=== PATIENT | female | born 1965 | race Caucasian/White ===

== ENCOUNTER 2017-06-28 14:14 | Emergency (ER) | payer OTHER ==
[~2017-06-28] VITALS: Ht 167.6 cm; Wt 65.3 kg
[~2017-06-28 14:14] MED LIST: HYDR-3307 PO
[2017-06-28 14:21] VITALS: BP 135/80
[2017-06-28] MEDS ORDERED: LIDOCAINE 1%, 20ML ONE ×2 (14:26→14:29)
[2017-06-28] MEDS ORDERED: LIDOCAINE 1%, 20ML INFIL ONE (14:30)
== END 2017-06-28 16:09 | disposition home or self-care (01) ==
LOC: ED 16:00
DX: S51.812A Laceration without foreign body of left forearm, initial encounter (principal); M79.631 Pain in right forearm; W27.8XXA Contact with other nonpowered hand tool, initial encounter; Y93.89 Activity, other specified; Y99.0 Civilian activity done for income or pay; Y92.69 Other specified industrial and construction area as the place of occurrence of the external cause
CPT/HCPCS: 12001; 99283

== ENCOUNTER 2017-07-09 10:37 | Emergency (ER) | payer OTHER ==
[~2017-07-09] VITALS: Ht 167.6 cm; Wt 47.0 kg
[2017-07-09 10:46] VITALS: BP 152/80
== END 2017-07-09 10:59 | disposition home or self-care (01) ==
LOC: ED 10:53
DX: S51.812D Laceration without foreign body of left forearm, subsequent encounter (principal)
CPT/HCPCS: 99282

== ENCOUNTER 2018-05-20 22:38 | Emergency (ER) | payer OTHER ==
[~2018-05-20] VITALS: Ht 167.6 cm; Wt 46.5 kg
[2018-05-20] MEDS ORDERED: ASPIRIN 81 MG TABLET CHEW ONE (23:22)
[2018-05-20] MEDS ORDERED: ASPIRIN 81 MG TABLET CHEW PO ONE (23:30)
[2018-05-20 23:39] LABS: BASOPHILS # (AUTO) 0.01 x10^3/uL (0-0.1); BASOPHILS % (AUTO) 0 % (0-1); EOSINOPHILS # (AUTO) 0.03 x10^3/uL (0-0.4); EOSINOPHILS % (AUTO) 1 % (1-7); LYMPHOCYTES # (AUTO) 1.06 x10^3/uL (1-3.4); LYMPHOCYTES % (AUTO) 24 % (22-44); MD NO; MEAN CORPUSCULAR HEMOGLOBIN 31.8 pg (27.0-34.8); MEAN CORPUSCULAR HGB CONC 33.9 g/dL (32.4-35.8); MEAN CORPUSCULAR VOLUME 93.8 fL (80-100); MEAN PLATELET VOLUME 8.6 fL (7.4-10.4); MONOCYTES # (AUTO) 0.31 x10^3/uL (0.2-0.8); MONOCYTES % (AUTO) 7 % (2-9); NEUTROPHILS # (AUTO) 2.96 x10^3/uL (1.8-6.8); NEUTROPHILS % (AUTO) 68 % (42-75); PLATELET COUNT 265 x10^3/uL (130-400); RED BLOOD COUNT 4.67 x10^6/uL (3.82-5.3); RED CELL DISTRIBUTION WIDTH 11.7 % (9.6-15.2)
[2018-05-20 23:50] LABS: ALANINE AMINOTRANSFERASE 26 U/L (12-78); ALBUMIN 3.9 g/dL (3.4-5.0); ANION GAP 8 mmol/L (5-15); CALCIUM 8.7 mg/dL (8.5-10.1); CHLORIDE 108 mmol/L (98-107); CREATININE 1.23 mg/dL (0.55-1.02)
[2018-05-20 23:54] LABS: ALKALINE PHOSPHATASE 55 U/L (45-117); BILIRUBIN,TOTAL 0.4 mg/dL (0.2-1.0); TOTAL PROTEIN 7.2 g/dL (6.4-8.2); TROPONIN I < 0.015 ng/mL (0.000-0.045)
[2018-05-21 00:28] VITALS: BP 144/88
== END 2018-05-21 00:30 | disposition home or self-care (01) ==
LOC: ED 23:23
DX: R07.89 Other chest pain (principal)
CPT/HCPCS: 36415; 71045; 80053; 84484; 85025; 93005; 99285

== ENCOUNTER 2019-04-16 19:24 | Emergency (ER) | payer OTHER ==
[~2019-04-16] VITALS: Ht 167.6 cm; Wt 42.0 kg
[2019-04-16 19:33] VITALS: BP 161/88
[2019-04-16] MEDS ORDERED: BACITRACIN ZINC OINT 500U/GM, 0.9 GM ONE ×2 (20:44→20:50)
== END 2019-04-16 21:39 | disposition home or self-care (01) ==
LOC: ED 21:00
DX: S80.01XA Contusion of right knee, initial encounter (principal); V11.0XXA Pedal cycle driver injured in collision with other pedal cycle in nontraffic accident, initial encounter; Y93.89 Activity, other specified; Y92.828 Other wilderness area as the place of occurrence of the external cause; Y99.8 Other external cause status
CPT/HCPCS: 99283